=== PATIENT | female | born 1980 | race Caucasian/White ===

== ENCOUNTER 2019-03-23 21:07 | Emergency (ER) | payer OTHER ==
[~2019-03-23] VITALS: Ht 160 cm; Wt 55.3 kg
[~2019-03-23 21:07] MED LIST: FLAGYL250 MG PO; LEVAQUIN500 MG PO; NITROFURANTOIN100 MG PO; PANTOPRAZOLE SO40 MG PO; ULTRAM 50MG50 MG PO
--- OUTSIDE RECORDS SUMMARY | 2019-03-23 21:11 | XMS REPORT | Continuity of Care Document ---
Author Author [facility] Interface Address Unknown Phone Unavailable Problems Problem Status Onset Date Classification Date Reported Comments Source LT KNEE Active 05/17/2017 [facility] [place] Medications Medication Details Route Status Patient Instructions Ordering Provider Order Date Source Allergies, Adverse Reactions, Alerts Substance Category Reaction Severity Reaction type Status Date Reported Comments Source Immunizations Immunization Date Given Site Status Last Updated Comments Source Results Order Name Results Value Reference Range Date Interpretation Comments Source Vital Signs Vital Sign Value Date Comments Source Encounters Location Location Details Encounter Type Encounter Number Reason For Visit Attending Provider ADM Date DC Date Status Source Procedures Procedure Code Date Perfomer Comments Source
--- OUTSIDE RECORDS SUMMARY | 2019-03-23 21:11 | XMS REPORT ---
Author Author [facility] Address Unknown Phone Unavailable Care Team Providers Care Web Content Manager Name Role Phone Unavailable Unavailable Problems This patient has no known problems. Allergies, Adverse Reactions, Alerts This patient has no known allergies or adverse reactions. Medications This patient has no known medications. Results Test Description Test Time Test Comments Text Results Atomic Results Result Comments BREAST ULTRASOUND BILATERAL 2019-01-03 08:16:59 - DIAG MAMM BILATERAL NICK CAD DIGITAL W/AUGMENTATIONBILATERAL DIGITAL DIAGNOSTIC MAMMOGRAM 3D/2D WITH CAD WITH AUGMENTATION: 01/02/2019CLINICAL: Bilateral breast masses. Digital breast tomosynthesis was performed in addition to routine CC and MLO views. Current mammographic images were evaluated by either a dondeEsta™ M-Vu or a Tag'By ImageChecker CAD (computer aided detection system). Comparison is made to exam dated 11/30/2011 mammogram - [facility]. The tissue of both breasts is extremely dense, which lowers the sensitivity of mammography. Bilateral implants are in place. No suspicious mass, architectural distortion, malignant type calcification, or lymph node abnormality detected. INCOMPLETE ASSESSMENT: ADDITIONAL IMAGING EVALUATION RECOMMENDEDUltrasound pending for ashish tional evaluation. A follow-up mammogram and an ultrasound in 6 months is recommended to demonstrate stability. - BREAST ULTRASOUND BILATERALULTRASOUND OF BOTH BREASTS AND BOTH AXILLA: 01/02/2019Comparison is made to exam dated 11/30/2011 mammogram - [facility]. Real-time ultrasound of both breasts and both axilla was performed. The palpable mass felt by the doctor is now a benign 7 mm cyst in the right breast at 11 o'clock, 5 cm from the nipple. There is a 1.1 cm lobulated solid benign appearing mass in the left breast at 4 o'clock 2 cm from the nipple. Color flow imaging demonstrates that there is no increase in vascularity. The palpable mass felt by the patient is a benign 1.5 cm cyst in the left breast at 10 o'clock, 4 cm from the nipple. No abnormalities were seen sonographically in either axilla. Benign cysts and dilated ducts were seen bilaterally. IMPRESSION: PROBABLY BENIGN - FOLLOW-UP RECOMMENDEDThe 1.1 cm lobulated mass in the left breast at 4 o'clock is probably benign. A follow-up mammogram and an ultrasound in 6 months is recommended to demonstrate stability. Kiki Palmer M.D. dm/:01/03/2019 08:16:59 Headlight Adjuster: Kaci Lorenz , [facility] Short Term Follow Up Mammogram BI-RADS: 0 Indeterminate Ultrasound BI-RADS: 3 Probably benign DIAG MAMM BILATERAL NICK CAD DIGITAL W/AUGMENTATION 2019-01-03 08:16:59 - DIAG MAMM BILATERAL NICK CAD DIGITAL W/AUGMENTATIONBILATERAL DIGITAL DIAGNOSTIC MAMMOGRAM 3D/2D WITH CAD WITH AUGMENTATION: 01/02/2019CLINICAL: Bilateral breast masses. Digital breast tomosynthesis was performed in addition to routine CC and MLO views. Current mammographic images were evaluated by either a dondeEsta™ M- Vu or a Tag'By ImageChecker CAD (computer aided detection system). Comparison is made to exam dated 11/30/2011 mammogram - [facility]. The tissue of both breasts is extremely dense, which lowers the sensitivity of mammography. Bilateral implants are in place. No suspicious mass, architectural distortion, malignant type calcification, or lymph node abnormality detected. INCOMPLETE ASSESSMENT: ADDITIONAL IMAGING EVALUATION RECOMMENDEDUltrasound pending for additional evaluation. A follow-up mammogram and an ultrasound in 6 months is recommended to demonstrate stability. - BREAST ULTRASOUND BILATERALULTRASOUND OF BOTH BREASTS AND BOTH AXILLA: 01/02/2019Compar andrzej is made to exam dated 11/30/2011 [facility] Real-time ultrasound of both breasts and both axilla was performed. The palpable mass felt by the doctor is now a benign 7 mm cyst in the right breast at 11 o'clock, 5 cm from the nipple. There is a 1.1 cm lobulated solid benign appearing mass in the left breast at 4 o'clock 2 cm from the nipple. Color flow imaging demonstrates that there is no increase in vascularity. The palpable mass felt by the patient is a benign 1.5 cm cyst in the left breast at 10 o'clock, 4 cm from the nipple. No abnormalities were seen sonographically in either axilla. Benign cysts and dilated ducts were seen bilaterally. IMPRESSION: PROBABLY BENIGN - FOLLOW-UP RECOMMENDEDThe 1.1 cm lobulated mass in the left breast at 4 o'clock is probably benign. A follow-up mammogram and an ultrasound in 6 months is recommended to demonstrate stability. Kiki Palmer M.D. dm/:01/03/2019 08:16:59 Headlight Adjuster: Kaci DALLAS, [facility] sent: Short Term Follow Up Mammogram BI-RADS: 0 Indeterminate Ultrasound BI-RADS: 3 Probably benign
[2019-03-23 23:05] LABS: CLARITY,URINE CLEAR (CLEAR); COLOR,URINE YELLOW (YELLOW); LEUKOCYTE ESTERASE ,URINE NEGATIVE (NEGATIVE); NITRITE,URINE NEGATIVE (NEGATIVE)
[2019-03-23 23:06] LABS: BACTERIA,URINE FEW /HPF; BILIRUBIN,URINE NEGATIVE (NEGATIVE); EPITHELIAL CELLS,URINE FEW /LPF; KETONES,URINE NEGATIVE (NEGATIVE); PROTEIN,URINE DIPSTICK NEGATIVE (NEGATIVE); RBC,URINE 0-5 /HPF (0-5); URINE UROBILINOGEN 0.2 mg/dL (0.2 - 1); WBC,URINE (MAN) 0-5 /HPF (0-5)
[2019-03-23 23:28] LABS: PREGNANCY TEST, URINE NEGATIVE (NEGATIVE)
--- NOTE | 2019-03-24 00:04 | Diagnostic Imaging Report ---
Exam: KUB with PA chest. Clinical History: Unable to eat, complaints of pain under the left breast/left upper quadrant, intermittently for one year Comparison: CT abdomen and pelvis 02/07/2015 DISCUSSION: Frontal view of the abdomen shows a nonobstructive bowel gas pattern with mild amount of retained stool.There are no dilated, air-filled loops of bowel. No pneumoperitoneum. Mildly prominent liver and splenic shadows, consistent with previously visualized mild hepatomegaly and splenomegaly. There are no abnormal calcifications. Pelvic phleboliths. Lungs are grossly clear. No consolidation or effusion. Cardiomediastinal silhouette is normal. Pulmonary vasculature is normal. No acute bony abnormalities. IMPRESSION: 1. Nonobstructive bowel gas pattern with mild amount of retained stool. 2.. Mildly prominent liver and splenic shadows consistent with previously visualized mild hepatomegaly and splenomegaly. The staff physician below has personally reviewed this exam on the date of dictation. Signed by: Dr. Moe Vázquez M.D. on 03/24/2019 12:01 AM
[2019-03-24 00:21] VITALS: BP 98/74
== END 2019-03-24 00:30 | disposition home or self-care (01) ==
LOC: ER 21:07
DX: R10.12 Left upper quadrant pain (principal); K59.00 Constipation, unspecified; Z87.19 Personal history of other diseases of the digestive system
CPT/HCPCS: 74022; 81001; 81025; 93005; 99283

== ENCOUNTER → 2019-03-31 | Outpatient (CLI) | payer OTHER ==
[~2019-03-31] MED LIST changes: +DIATRIZOATE MEGL/DIATRIZOA SOD 30 ML BTL PO ONE; +IOPAMIDOL 370 MG/ML 200 ML INFUS..BTL INJ ONE; +SODIUM CHLORIDE 0.9% 50ML 50 ML ONE
--- NOTE | 2019-03-31 14:48 | Diagnostic Imaging Report ---
EXAMINATION: CT of the abdomen and pelvis with contrast. TECHNIQUE: Spiral CT images of the abdomen and pelvis were performed from the lung bases to the lesser trochanters after the intravenous administration of 100 cc Isovue-370 and the oral administration of Gastrografin. Coronal and sagittal reformatted images were obtained. COMPARISON: None. CLINICAL HISTORY:Right upper quadrant pain DISCUSSION: ABDOMEN/PELVIS: LOWER THORAX:Bilateral breast implants. HEPATOBILIARY: No focal hepatic lesions. No intra-or extrahepatic biliary ductal dilation. The gallbladder is normal. SPLEEN: No splenomegaly. PANCREAS: No focal masses or ductal dilatation. ADRENALS: No adrenal nodules. KIDNEYS/URETERS: No hydronephrosis, stones, or solid mass lesions. PELVIC ORGANS/BLADDER: Urinary bladder is unremarkable. Uterus is anteflexed with a 1.3 cm exophytic subserosal fibroid projecting from the fundus. No adnexal mass. PERITONEUM/RETROPERITONEUM: No free air or fluid. LYMPH NODES: No pelvic sidewall, retroperitoneal, or mesenteric lymphadenopathy. 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 Abdominal aorta, major branch vessels, and iliac arterial systems are otherwise well-visualized and patent. Portal vein, splenic vein, and central superior mesenteric vein are patent. GI TRACT: The large bowel shows no evidence of distention or wall thickening. The appendix is best seen on coronal images and is normal area no small bowel dilatation to suggest obstruction. BONES AND SOFT TISSUE: No osseous destructive lesion. No focal soft tissue abnormality. IMPRESSION: No acute intra-abdominal or pelvic CT abnormalities. 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 Subserosal, pedunculated uterine fibroid as described above. Signed by: Dr. Varun Boyd M.D. on 03/31/2019 2:45 PM
== END ==
LOC: CT 13:16
PROVIDERS: ATTEND Internal Medicine Gastroenterology
DX: R10.11 Right upper quadrant pain (principal); R10.12 Left upper quadrant pain; K57.92 Diverticulitis of intestine, part unspecified, without perforation or abscess without bleeding
CPT/HCPCS: 74177; Q9967

== ENCOUNTER → 2019-04-06 | Day surgery (SDC) | payer OTHER ==
[~2019-04-06] MED LIST changes: +ACETAMINOPHEN 1000 MG/100 ML 100 ML IV ONE; +ADDERALL XR 3030 MG PO; -DIATRIZOATE MEGL/DIATRIZOA SOD 30 ML BTL PO ONE; +FENTANYL CITRATE/PF 100MCG/2 ML INJ ONE; +GLUCAGON FOR INJ 1 MG VIAL ONE; +HYOSCYAMINE SULFATE 0.5 MG/ML INJ ONE; -IOPAMIDOL 370 MG/ML 200 ML INFUS..BTL INJ ONE; +KETOROLAC TROMETHAMINE 30 MG/ML VIAL ONE; +MIDAZOLAM HCL 2 MG/2 ML VIAL ONE; +ONDANSETRON HCL INJ 2MG/ML 2ML 2 MG/ML VIAL ONE; +PROPOFOL IV EMULSION 10 MG/ML 50 ML VIAL ONE; -SODIUM CHLORIDE 0.9% 50ML 50 ML ONE
[2019-04-06 14:40] VITALS: BP 108/72
--- NOTE | 2019-04-06 20:51 | Operative Report ---
DATE OF PROCEDURE: 04/06/2019 SURGEON: John Mai MD PROCEDURES: 1. Esophagogastroduodenoscopy with biopsies. 2. Colonoscopy. INDICATIONS FOR EGD: Upper abdominal pain. INDICATIONS FOR COLONOSCOPY: History of diverticulitis. MEDICATIONS: The patient was done under MAC, please see anesthesiologist's note. PROCEDURE IN DETAIL: With the patient in left lateral decubitus position, a flexible fiberoptic Olympus gastroscope was introduced into the esophagus under direct visualization without any difficulty. There was some patchy erythema noted in the distal esophagus. The scope was then advanced with ease into the stomach. Mucosa overlying the antrum and the body revealed some patchy erythema, low-grade to moderate edema and biopsies were obtained, sent to stain for H pylori. Several minute hyperplastic-appearing polyps were noted in the body of the stomach and somewhat partially excised with the cold biopsy forceps. The pylorus was intubated with ease and the scope was advanced all the way to the second portion of the duodenum. Biopsies were obtained from the proximal and second portion and duodenal bulb to rule out sprue. The scope was then withdrawn back into the stomach and retroflexed mucosa overlying the fundus and cardia appeared to be within normal limits. The scope was then straightened out, it was subsequently withdrawn. The patient tolerated the procedure well. IMPRESSION: 1. Distal esophagitis, mild. 2. Gastritis, biopsied, biopsies sent to stain for H pylori. 3. Gastric polyps, minute, body, hyperplastic appearing, some partially excised with the cold biopsy forceps. 4. Rule out sprue. PLAN: Follow up histology. Initiate Protonix 40 mg one p.o. q.a.m. a.c. The patient was then turned around after adequate lubrication of the anal canal. A flexible fiberoptic Olympus colonoscope was inserted into the rectum with ease and advanced all the way to the cecum. It was then withdrawn slowly. Mucosa overlying the cecum, ascending colon, transverse colon as well as the descending colon appeared to be within normal limits. Diverticular disease was noted to involve the distal descending and the sigmoid colon. Rectum appeared to be within normal limits. The scope was then retroflexed into the distal rectum and small internal hemorrhoids were noted, none of which was actively bleeding. The scope was then straightened out, it was subsequently withdrawn. The patient tolerated the procedure well. IMPRESSION: 1. Diverticulosis. 2. Internal hemorrhoids, none actively bleeding. PLAN: Initiate high-fiber, low-fat diet. Initiate high-fiber supplement. The patient might benefit from a followup colonoscopy in 10 years. MD MALI Zaragoza/GABRIEL /[id number] cc: John Mai MD
== END | disposition home or self-care (01) ==
LOC: OR 10:07
PROVIDERS: ATTEND Internal Medicine Gastroenterology
DX: K29.70 Gastritis, unspecified, without bleeding (principal); K31.7 Polyp of stomach and duodenum; K20.9 Esophagitis, unspecified; K59.09 Other constipation; K57.30 Diverticulosis of large intestine without perforation or abscess without bleeding; K64.8 Other hemorrhoids; F98.8 Other specified behavioral and emotional disorders with onset usually occurring in childhood and adolescence; Z88.6 Allergy status to analgesic agent; Z88.1 Allergy status to other antibiotic agents; Z68.21 Body mass index [BMI] 21.0-21.9, adult
CPT/HCPCS: 43239; 45378; 81025; J0131; J1610; J1885; J1980; J2250; J2405; J2704

== ENCOUNTER 2019-04-24 17:31 | Emergency (ER) | payer OTHER ==
[~2019-04-24] VITALS: Ht 160 cm; Wt 52.6 kg
[~2019-04-24 17:31] MED LIST changes: -ACETAMINOPHEN 1000 MG/100 ML 100 ML IV ONE; -FENTANYL CITRATE/PF 100MCG/2 ML INJ ONE; -GLUCAGON FOR INJ 1 MG VIAL ONE; -HYOSCYAMINE SULFATE 0.5 MG/ML INJ ONE; -KETOROLAC TROMETHAMINE 30 MG/ML VIAL ONE; -MIDAZOLAM HCL 2 MG/2 ML VIAL ONE; -ONDANSETRON HCL INJ 2MG/ML 2ML 2 MG/ML VIAL ONE; -PROPOFOL IV EMULSION 10 MG/ML 50 ML VIAL ONE
--- OUTSIDE RECORDS SUMMARY | 2019-04-24 17:34 | XMS REPORT | Continuity of Care Document ---
Author Author [facility] Interface Address Unknown Phone Unavailable Problems Problem Status Onset Date Classification Date Reported Comments Source LT KNEE Active 05/17/2017 [facility] [place] Fever Active 02/07/2015 Problem 03/24/2019 [facility] Pyelonephritis Active 02/07/2015 Problem 03/24/2019 [facility] Vomiting Active 02/07/2015 Problem 03/24/2019 [facility] Medications Medication Details Route Status Patient Instructions Ordering Provider Order Date Source Metronidazole (Flagyl) 250 Mg Tablet, 250 Mg Oral Three Times A Day Active 02/09/2015 [facility] Levofloxacin (Levaquin) 500 Mg Tablet Daily Active [facility] Nitrofurantoin Macrocrystal (Nitrofurantoin) 100 Mg Capsule Twice A Day Active [facility] Pantoprazole Sodium (Protonix) 40 Mg Tablet.dr Daily Active [facility] Tramadol Hcl (Ultram 50MG*) 50 Mg Tab Every 6 Hours as needed Active [facility] Allergies, Adverse Reactions, Alerts Substance Category Reaction Severity Reaction type Status Date Reported Comments Source Clarithromycin Allergy to Substance Active 10/31/2012 [facility] Immunizations Immunization Date Given Site Status Last Updated Comments Source Results Order Name Results Value Reference Range Date Interpretation Comments Source Urine color determination YELLOW YELLOW 03/23/2019 [facility] Urine clarity CLEAR CLEAR 03/23/2019 [facility] Specific gravity of Urine by Test strip 1.005 1.010 - 1.025 03/23/2019 [facility] Urine pH measurement by automated test strip 7 5 - 7 03/23/2019 [facility] Urine leukocyte esterase detection by dipstick NEGATIVE NEGATIVE 03/23/2019 [facility] Urine nitrite detection NEGATIVE NEGATIVE 03/23/2019 [facility] Urine protein measurement by test strip (mass/volume) NEGATIVE NEGATIVE 03/23/2019 [facility] Urine glucose detection NEGATIVE NEGATIVE 03/23/2019 [facility] Urine ketones detection by automated test strip NEGATIVE NEGATIVE 03/23/2019 [facility] Urine urobilinogen measurement by test strip (mass/volume) 0.2 0.2 - 1 03/23/2019 [facility] Urine total bilirubin measurement (mass/volume) NEGATIVE NEGATIVE 03/23/2019 [facility] Urine erythrocytes detection NEGATIVE NEGATIVE 03/23/2019 [facility] Automated urine sediment leukocyte count by microscopy (number/high power field) 0-5 0 - 5 03/23/2019 [facility] Erythrocytes detection in urine sediment by light microscopy 0-5 0 - 5 03/23/2019 [facility] Bacteria detection in urine sediment by light microscopy FEW NONE 03/23/2019 [facility] Epithelial cells detection in urine sediment by light microscopy FEW NONE 03/23/2019 [facility] Urine human chorionic gonadotropin (hCG) detection NEGATIVE NEGATIVE 03/23/2019 [facility] Vital Signs Vital Sign Value Date Comments Source Encounters Location Location Details Encounter Type Encounter Number Reason For Visit Attending Provider ADM Date DC Date Status Source Departed Emergency Room [id number] BRETT SCHULTZ MD 03/23/2019 03/24/2019 [facility] Procedures Procedure Code Date Perfomer Comments Source
[2019-04-24] MEDS ORDERED: ONDANSETRON HCL INJ 2MG/ML 2ML 2 MG/ML VIAL IV ONE (17:38)
[2019-04-24] MEDS ORDERED: MORPHINE SULFATE INJ 4 MG/ML INJ 1ML IV PRN (17:45)
[2019-04-24 18:14] LABS: BASOPHILS # (AUTO) 0.1 (0.0-0.1); BASOPHILS % 0.9 % (0.0-1.0); EOSINOPHILS # (AUTO) 0.2 (0.0-0.4); EOSINOPHILS % 2.8 % (0.0-6.0); HEMATOCRIT 40.4 % (34.2-44.1); HEMOGLOBIN 13.5 g/dL (12.0-16.0); LYMPHOCYTES # (AUTO) 2.3 (1.0-3.2); LYMPHOCYTES % 35.3 % (18.0-39.1); MEAN CORPUSCULAR HEMOGLOBIN 30.8 pg (28-32); MEAN CORPUSCULAR HGB CONC 33.4 g/dL (31-35); MEAN CORPUSCULAR VOLUME 92.2 fL (81-99); MONOCYTES # (AUTO) 0.7 (0.2-0.8); NEUTROPHILS # (AUTO) 3.3 (2.1-6.9); NEUTROPHILS % 50.8 % (38.7-80.0); PLATELET COUNT 351 x10e3/uL (140-360); RED BLOOD COUNT 4.38 x10e6/uL (3.6-5.1); RED CELL DISTRIBUTION WIDTH 12.9 % (11.7-14.4)
--- NOTE | 2019-04-24 18:17 | Diagnostic Imaging Report ---
EXAMINATION: CHEST SINGLE (PORTABLE) INDICATION: Severe abdominal pain. Pain on the left side of the chest that radiates to the back. COMPARISON: None FINDINGS: AP view TUBES and LINES: None. LUNGS: Lungs are hyper inflated. Lungs are clear. There is no evidence of pneumonia or pulmonary edema. PLEURA: No pleural effusion or pneumothorax. HEART AND MEDIASTINUM: The cardiomediastinal silhouette is unremarkable. BONES AND SOFT TISSUES: No acute osseous lesion. Soft tissues are unremarkable. UPPER ABDOMEN: No free air under the diaphragm. IMPRESSION: No acute thoracic abnormality. Signed by: Dr. Bryan Avilez M.D. on 04/24/2019 6:14 PM
[2019-04-24] MEDS ORDERED: FENTANYL CITRATE/PF 100MCG/2 ML INJ IV ONE (18:30)
--- NOTE | 2019-04-24 18:31 | NUR ---
NOTIIFED RADIOLOGY TO PAGE ULTRASOUND FOR ABDOMEN DOPPLER
[2019-04-24 18:37] LABS: BILIRUBIN,URINE NEGATIVE (NEGATIVE); CLARITY,URINE CLEAR (CLEAR); KETONES,URINE NEGATIVE (NEGATIVE); LEUKOCYTE ESTERASE ,URINE NEGATIVE (NEGATIVE); NITRITE,URINE NEGATIVE (NEGATIVE); PROTEIN,URINE DIPSTICK NEGATIVE (NEGATIVE); URINE UROBILINOGEN 0.2 mg/dL (0.2 - 1)
[2019-04-24 18:38] LABS: COLOR,URINE COLORLESS (YELLOW)
[2019-04-24 18:38] LABS: ALANINE AMINOTRANSFERASE 12 IU/L (0-55); ALBUMIN 4.4 g/dL (3.5-5.0); ALBUMIN/GLOBULIN RATIO 1.3 (0.8-2.0); ALKALINE PHOSPHATASE 67 IU/L (40-150); ANION GAP 13.5 mmol/L (8-16); BLOOD UREA NITROGEN 12 mg/dL (7-26); BUN/CREATININE RATIO 12 (6-25); CALCIUM 9.9 mg/dL (8.4-10.2); CARBON DIOXIDE 26 mmol/L (22-29); CHLORIDE 105 mmol/L (98-107); CREATINE KINASE 82 IU/L (29-168); CREATININE, SERUM 1.01 mg/dL (0.57-1.11); EST GLOMERULAR FILTRATION RATE > 60 ML/MIN (60-); GLUCOSE 89 mg/dL (74-118); LIPASE 28 U/L (8-78); POTASSIUM 3.5 mmol/L (3.5-5.1); SODIUM 141 mmol/L (136-145)
[2019-04-24 18:48] LABS: BACTERIA,URINE FEW /HPF; EPITHELIAL CELLS,URINE MODERATE /LPF
--- NOTE | 2019-04-24 19:08 | NUR ---
PT STATES THAT SHE IS FEELING BETTER NOW AFTER THE FENTANYL. DR LINO AND DR. MTZ ARRIVED AT BEDSIDE AND ARE DISCUSSING DISPO AND FOLLOW UP OPTIONS WITH PT AND HER MOTHER
--- NOTE | 2019-04-24 20:04 | NUR ---
notified dr clement of patients request for additional pain medication
[2019-04-24] MEDS ORDERED: HYDROMORPHONE 2MG/ML 2 MG/ML ML IV ONE ×2 (20:45)
--- NOTE | 2019-04-24 21:02 | Diagnostic Imaging Report ---
EXAM: Complete Abdominal Ultrasound with Doppler INDICATION: ^abd pain COMPARISON: CT abdomen and pelvis 03/31/2019. TECHNIQUE: Transverse and longitudinal images of the upper abdomen were obtained. Grayscale, color Doppler and spectral waveform analysis of the hepatic vasculature and splenic vein were performed. FINDINGS: Liver: Size: 15.1 cm in the right midclavicular line, normal Appearance: Normal echogenicity, smooth contour Mass: No focal masses Spleen: Size: 11.7 cm in length, normal Echogenicity: Normal Mass: No focal masses Gallbladder: Stones/Sludge: None Wall: 0.1 cm Appearance: No wall thickening, pericholecystic fluid or hydrops. Sonographic Del Castillo's Sign: Negative Bile Ducts: Intrahepatic Ducts: No dilatation Extrahepatic Ducts: Common bile duct measures 0.2 cm, no dilatation Pancreas: Visualized portions of the pancreatic head, neck and proximal body are normal. Right Kidney: Size: 9.8 x 4.2 x 3.7 cm Echogenicity: Normal Parenchymal thickness: Normal Collecting System: No hydronephrosis Stone: None Cyst/Mass: None Left Kidney: Size: 9.4 x 3.8 x 3.1 cm Echogenicity: Normal Parenchymal thickness: Normal Collecting System: No hydronephrosis Stone: None Cyst/Mass: None Vessels: Aorta: Visualized portions are normal Inferior Vena Cava: Visualized portions are normal Free Fluid: No ascites or pleural effusion Doppler: Celiac axis: 150 cm/s on inspiration. 30 to 39 cm/s on expiration. SMA: 99 cm/s. IMPRESSION: 1. Normal abdominal ultrasound. 2. Significant decrease in velocity in the celiac axis with expiration, consistent with median arcuate ligament syndrome. Signed by: Dr. Bryan Avilez M.D. on 04/24/2019 8:58 PM
[2019-04-24] MEDS ORDERED: PROMETHAZINE HCL (IM) 25 MG/ML VIAL IM ONE (22:00)
[2019-04-24 22:10] VITALS: BP 111/72
== END 2019-04-24 22:29 | disposition home or self-care (01) ==
LOC: ER 17:31
DX: R10.12 Left upper quadrant pain (principal); R11.0 Nausea
CPT/HCPCS: 36415; 71045; 80053; 81001; 82550; 82553; 83690; 84484; 85025; 93975; 99284; J1170; J2405; J2550

== ENCOUNTER → 2021-07-23 | Day surgery (SDC) | payer BC, OTHER ==
[2021-07-22 09:32] LABS: BASOPHILS # (AUTO) 0.1 (0.0-0.1); BASOPHILS % 1.2 % (0.0-1.0); EOSINOPHILS # (AUTO) 0.3 (0.0-0.4); EOSINOPHILS % 4.5 % (0.0-6.0); HEMATOCRIT 44.3 % (34.2-44.1); HEMOGLOBIN 14.1 g/dL (12.0-16.0); LYMPHOCYTES % 33.9 % (18.0-39.1); MEAN CORPUSCULAR HEMOGLOBIN 30.8 pg (28-32); MEAN CORPUSCULAR HGB CONC 31.8 g/dL (31-35); MEAN CORPUSCULAR VOLUME 96.7 fL (81-99); MONOCYTES # (AUTO) 0.5 (0.2-0.8); MONOCYTES % 8.6 % (4.4-11.3); NEUTROPHILS % 51.6 % (38.7-80.0); PLATELET COUNT 300 x10e3/uL (140-360); RED BLOOD COUNT 4.58 x10e6/uL (3.6-5.1); RED CELL DISTRIBUTION WIDTH 12.9 % (11.7-14.4)
[2021-07-22 09:51] LABS: CLARITY,URINE CLOUDY (CLEAR); COLOR,URINE YELLOW (YELLOW); LEUKOCYTE ESTERASE ,URINE LARGE (NEGATIVE)
[2021-07-22 09:52] LABS: KETONES,URINE NEGATIVE (NEGATIVE); NITRITE,URINE NEGATIVE (NEGATIVE); PROTEIN,URINE DIPSTICK NEGATIVE (NEGATIVE); URINE UROBILINOGEN 0.2 mg/dL (0.2 - 1)
[2021-07-22 14:46] LABS: ALBUMIN 4.5 g/dL (3.5-5.0); ALBUMIN/GLOBULIN RATIO 1.4 (0.8-2.0); ANION GAP 16.5 mmol/L (8-16); CALCIUM 9.3 mg/dL (8.4-10.2); CREATININE, SERUM 1.03 mg/dL (0.57-1.11); POTASSIUM 4.5 mmol/L (3.5-5.1)
[~2021-07-23] MED LIST changes: +BUPIVACAINE 0.25% 30ML SDV ONE; +DEXAMETHASONE SOD PHOS INJ 4 MG/ML VIAL ONE; +EPHEDRINE SULFATE INJ 50 MG/ML VIAL ONE; +GLYCOPYRROLATE INJ 0.2 MG/ML VIAL ONE; +HYDROMORPHONE 1MG/1ML INJ ONE; +KETOROLAC TROMETHAMINE 30 MG/ML VIAL ONE; +LIDOCAINE HCL 2% LOCAL INJ 5 ML SDV VIAL INJ ONE; +NEOSTIGMINE 1 MG/ML 10ML VIAL ONE; +ONDANSETRON HCL INJ 2MG/ML 2ML 2 MG/ML VIAL ONE; +POVIDONE IODINE 0.05% 0.05 % ML PO ONE; +PROMETHAZINE HCL (IM) 25 MG/ML VIAL IM ONE; +PROPOFOL IV EMULSION 10 MG/ML 20 ML VIAL ONE; +ROCURONIUM BROMIDE 10 MG/ML 5ML VIAL IV ONE; +SEVOFLURANE INHAL SOLN 250 ML PEN BTL ONE; +SUGAMMADEX SODIUM 200 MG/2 ML VIAL IV ONE; +WELLBUTRIN XL150 MG PO
[2021-07-23 12:40] VITALS: BP 110/43
== END | disposition home or self-care (01) ==
LOC: OR 06:51
PROVIDERS: ATTEND Surgery
DX: K82.8 Other specified diseases of gallbladder (principal); K21.9 Gastro-esophageal reflux disease without esophagitis; I34.1 Nonrheumatic mitral (valve) prolapse; F98.8 Other specified behavioral and emotional disorders with onset usually occurring in childhood and adolescence; Z88.6 Allergy status to analgesic agent; Z88.1 Allergy status to other antibiotic agents; Z01.810 Encounter for preprocedural cardiovascular examination; Z01.812 Encounter for preprocedural laboratory examination; Z20.822 Contact with and (suspected) exposure to COVID-19; Z85.89 Personal history of malignant neoplasm of other organs and systems; Z86.16 Personal history of COVID-19
CPT/HCPCS: 36415; 47562; 80053; 81003; 81025; 85025; 88304; 93005; C1766; J1100; J1170; J1885; J2001; J2405; J2550; J2704; J2710; U0002